=== PATIENT | female | born 1965 | race African-American/Black ===

== ENCOUNTER 2023-06-08 10:13 | Emergency (ER) | payer MEDICARE ==
[~2023-06-08] VITALS: Ht 167.6 cm; Wt 146.5 kg
[2023-06-08] MEDS: SODIUM CHLORIDE 0.9% 1000ML 1,000 ML IV STA (10:50)
[2023-06-08 11:12] LABS: BASOPHILS % 0.2 % (0.0-1.0); HEMATOCRIT 43.5 % (34.2-44.1); HEMOGLOBIN 13.7 g/dL (12.0-16.0); LYMPHOCYTES # (AUTO) 0.8 (1.0-3.2); LYMPHOCYTES % 14.2 % (18.0-39.1); MEAN CORPUSCULAR HEMOGLOBIN 32.3 pg (28-32); MEAN CORPUSCULAR HGB CONC 31.5 g/dL (31-35); MEAN CORPUSCULAR VOLUME 102.6 fL (81-99); MONOCYTES # (AUTO) 0.2 (0.2-0.8); MONOCYTES % 3.6 % (4.4-11.3); NEUTROPHILS # (AUTO) 4.7 (2.1-6.9); NEUTROPHILS % 80.8 % (38.7-80.0); PLATELET COUNT 173 x10e3/uL (140-360); RED BLOOD COUNT 4.24 x10e6/uL (3.6-5.1); RED CELL DISTRIBUTION WIDTH 13.8 % (11.7-14.4); WHITE BLOOD COUNT 5.84 x10e3/uL (4.8-10.8)
[2023-06-08 11:22] LABS: INR 1.05; PROTHROMBIN TIME 13.9 seconds (11.9-14.5)
[2023-06-08 11:23] LABS: PARTIAL THROMBOPLASTIN TIME 30.4 seconds (23.8-35.5)
[2023-06-08 11:34] LABS: ALBUMIN 4.1 g/dL (3.5-5.0); ALBUMIN/GLOBULIN RATIO 0.9 (0.8-2.0); ANION GAP 14.2 mmol/L (8-16); BILIRUBIN,TOTAL 0.4 mg/dL (0.2-1.2); CREATININE, SERUM 1.1 mg/dL (0.57-1.11); TOTAL PROTEIN 8.5 g/dL (6.5-8.1)
[2023-06-08 11:35] LABS: POTASSIUM 3.2 mmol/L (3.5-5.1)
[2023-06-08] MEDS ORDERED: CLINDAMYCIN HC150 MG PO (13:19)
[2023-06-08 13:34] VITALS: O2SAT 98
== END 2023-06-08 13:30 | disposition home or self-care (01) ==
LOC: ER 10:25
DX: M79.604 Pain in right leg (principal); L03.115 Cellulitis of right lower limb; I10 Essential (primary) hypertension; F32.A Depression, unspecified; B20 Human immunodeficiency virus [HIV] disease
CPT/HCPCS: 36415; 71045; 80053; 85025; 85610; 85730; 93971; 99284; J7030